=== PATIENT | female | born 1995 | race African-American/Black ===

== ENCOUNTER 2021-02-01 10:14 | Inpatient (IN) | payer OTHER ==
[~2021-02-01] VITALS: Ht 160 cm; Wt 63.0 kg
[2021-02-01 10:16] VITALS: BP 153/61
[2021-02-01 10:50] LABS: HEMATOCRIT 35.6 % (37.0-47.0); HEMOGLOBIN 11.5 gm/dL (12.0-15.0); MCHC 32.4 g/dL (28.0-37.0); MCV 76.9 fL (80.0-100.0); PLATELET COUNT 222 thou/uL (150-400); RBC 4.62 mil/uL (4.20-5.00); RDW 17.6 % (10.5-14.5); WBC 25.5 thou/uL (4.0-11.0)
[2021-02-01 10:56] LABS: CALCIUM 8.6 mg/dL (8.5-10.1); CREATININE 0.8 mg/dL (0.6-1.0); POTASSIUM 3.2 mmol/L (3.5-5.1)
[2021-02-01 11:02] LABS: TOTAL BILIRUBIN 0.4 mg/dL (0.2-1.0); TOTAL PROTEIN 7.8 g/dL (6.4-8.2)
[2021-02-01 11:27] LABS: ABSOLUTE NEUTROPHILS 20.4 thou/uL (1.4-8.2)
[2021-02-01 11:28] LABS: ANISOCYTOSIS 1+
[2021-02-01 15:18] LABS: URINE BILIRUBIN NEGATIVE (Negative); URINE BLOOD 2+ (Negative); URINE COLOR YELLOW; URINE GLUCOSE-RANDOM* NEGATIVE (Negative); URINE KETONES 2+ (Negative); URINE LEUKOCYTES-REFLEX NEGATIVE (Negative); URINE PROTEIN (DIPSTICK) TRACE (Negative); URINE SPECIFIC GRAVITY <= 1.005 (1.005-1.035); URINE UROBILINOGEN 0.2 E.U./dl (0.2-1.0)
[2021-02-01 15:20] LABS: URINE CLARITY HAZY; URINE NITRITE-REFLEX POSITIVE (Negative)
[2021-02-01 15:31] LABS: CASTS None Seen /LPF (None Seen); SQUAMOUS >10 Many /LPF (0-3)
[2021-02-01 15:32] LABS: URINE RBC 3-10 Few /HPF (NONE SEEN)
[2021-02-01 15:33] LABS: BACTERIA-REFLEX 1-9 Few /HPF (None Seen); CRYSTALS None Seen /LPF (None Seen); URINE WBC-REFLEX 6-15 Few /HPF (0-5)
--- NOTE | 2021-02-01 19:07 | NUR ---
SPOKE WITH DR SANTANA AT THIS TIME. PT STATUS CHANGED FROM CC TELE TO MED SURG TELE.
[2021-02-02 08:29] VITALS: BP 102/53
--- NOTE | 2021-02-02 08:32 | NUR ---
PT UP TO SINK TO DO HYGINE. GIVEN MOUTH CARE AND BODY WASH AND DEODERANT AND CLEAN GOWN AT THIS TIME
--- NOTE | 2021-02-02 08:51 | NUR ---
PT SITTING UP EATING BREAKFAST AT THIS TIME
--- NOTE | 2021-02-02 10:13 | NUR ---
assumed care of pt at this time
[2021-02-02 10:37] VITALS: BP 106/42
[2021-02-02 10:37] LABS: HEMATOCRIT 32.9 % (37.0-47.0); HEMOGLOBIN 10.6 gm/dL (12.0-15.0); MCH 24.8 pg (26.0-34.0); MCHC 32.3 g/dL (28.0-37.0); MCV 76.7 fL (80.0-100.0); RBC 4.29 mil/uL (4.20-5.00); RDW 17.5 % (10.5-14.5); WBC 20.3 thou/uL (4.0-11.0)
[2021-02-02 10:41] LABS: CALCIUM 8.5 mg/dL (8.5-10.1); CREATININE 0.7 mg/dL (0.6-1.0); POTASSIUM 3.2 mmol/L (3.5-5.1)
--- NOTE | 2021-02-02 15:40 | NUR ---
25 year old female presents to the ED on 02-01-21 via private vehicle for 6 days of abdominal pain. Upon ED evaluation the patient was initially thought to have had acute appendicitis, but found acute right pyelonephritis on imaging. The patient has been admitted with and being treated for Sepsis related to acute right pyelonephritis. Per ED ID NOW as negative and Triage assessment notes no history of vaccination. Per the medical record and assessment the patient is listed as A&O x4, but does list a brother; Wong Harrison as next of kin at [phone]. Will have [employer] review with patient who is listed as patient pay. As Medical assessment continues CM will await therapy orders to be placed to assist for discharge planning which may include need for a safety net clinic.
[2021-02-02 17:22] VITALS: BP 106/42
[2021-02-02 18:27] VITALS: BP 106/59
--- NOTE | 2021-02-02 20:06 | NUR ---
Pt. resting quietly in the bed and offers no c/o pain. Admission assessment and history is completed. She is up ad bright.
[2021-02-02 20:08] VITALS: BP 112/65
--- NOTE | 2021-02-03 03:52 | NUR ---
Pt. rested quietly during the night when checked on during frequent rounds. She offers no c/o pain.
[2021-02-03 04:18] LABS: ABSOLUTE NEUTROPHILS 9.4 thou/uL (1.4-8.2); BASOPHILS 0.4 % (0.0-2.0); EOSINOPHILS 2.8 % (0.0-3.0); HEMATOCRIT 32.7 % (37.0-47.0); HEMOGLOBIN 10.4 gm/dL (12.0-15.0); LYMPHOCYTES 18.9 % (24.0-44.0); MCH 25.2 pg (26.0-34.0); MCHC 31.7 g/dL (28.0-37.0); MCV 79.6 fL (80.0-100.0); MONOCYTES 12.9 % (1.0-8.0); PLATELET COUNT 229 thou/uL (150-400); RBC 4.11 mil/uL (4.20-5.00); RDW 18.2 % (10.5-14.5); WBC 14.5 thou/uL (4.0-11.0)
[2021-02-03 05:00] VITALS: BP 121/56
[2021-02-03 05:07] LABS: CALCIUM 8.2 mg/dL (8.5-10.1); CREATININE 0.6 mg/dL (0.6-1.0); MAGNESIUM 1.7 mg/dL (1.8-2.4); POTASSIUM 3.5 mmol/L (3.5-5.1)
[2021-02-03 08:10] VITALS: BP 106/50
--- NOTE | 2021-02-03 09:28 | NUR ---
25 year old female presents to the ED on 02-01-21 via private vehicle for 6 days of abdominal pain. Upon ED evaluation the patient was initially thought to have had acute appendicitis, but found acute right pyelonephritis on imaging. The patient has been admitted with and being treated for Sepsis related to acute right pyelonephritis. Per ED ID NOW as negative and Triage assessment notes no history of vaccination. Per the medical record and assessment the patient is listed as A&O x4, but does list a brother; Wong Harrison as next of kin at [phone]. Will have [employer] review with patient who is listed as patient pay. As Medical assessment continues CM will await therapy orders to be placed to assist for discharge planning which may include need for a safety net clinic.
[2021-02-03 11:00] VITALS: BP 125/65
--- NOTE | 2021-02-03 12:58 | NUR ---
ASSUMED PT CARE THIS AM. PT A&OX4, ABLE TO MAKE NEEDS KNOWN. PATIENT REPORTS RIGHT FLANK PAIN THAT DECREASES WITH PAIN MEDICAITON GIVEN PER EMAR. IV REMAINS PATENT, FLUIDS INFUSING. PATIENT ON ROOM AIR. MEDICATIONS TAKEN WITHOUT ISSUE. PATIENT IS UP AD MARK IN ROOM. CALL LIGHT WITHIN REACH.
[2021-02-03 15:40] VITALS: BP 114/61
[2021-02-03 19:52] VITALS: BP 105/54
--- NOTE | 2021-02-04 04:05 | NUR ---
Pt. rested quietly during the night when checked on during frequent rounds. She was given po pain meds and anti-nausea meds (see emar) with relief noted.
[2021-02-04 04:07] VITALS: BP 121/64
[2021-02-04 07:50] VITALS: BP 103/32
[2021-02-04 11:48] VITALS: BP 132/57
--- NOTE | 2021-02-04 14:22 | NUR ---
ASSUMED PT CARE THIS AM. PT A&OX4, ABLE TO MAKE NEEDS KNOWN. PATIENT REMAINS CONTINENT, AMBULATORY INDEPENDENTLY AROUND ROOM. IV REMAINS PATENT, SALINE LOCKED. MEDICATIONS TAKEN WITHOUT ISSUE. PATIENT REPORTS RIGHT FLANK PAIN THAT DECREASES WITH PAIN MEDICATION GIVEN PER EMAR. PATIENT REMAINS ON ROOM AIR. CALL LIGHT WITHIN REACH.
[2021-02-04 16:18] VITALS: BP 118/55
--- NOTE | 2021-02-04 16:42 | NUR ---
CARE TEAM INDICATED THAT IS PROGRESSING TOWARD GOAL OF DISCHARGE. [employer] VISITED WITH PT AND SUBMITTED AN APPLICATION ON HER 02/03/21 AND ARE WORKING WITH HER TO GET NEEDED DOCUMENTS. CM FOLLOWING REGARDING DC PLANNING.
[2021-02-04 19:24] VITALS: BP 115/53
--- NOTE | 2021-02-05 04:59 | NUR ---
Pt. rested quietly during the night when checked on during frequent rounds. She was given po pain med (see emar) for c/o flank pain with some relief noted.
[2021-02-05 05:42] LABS: HEMOGLOBIN 10.9 gm/dL (12.0-15.0); MCH 25.4 pg (26.0-34.0); MCV 76.7 fL (80.0-100.0); RBC 4.3 mil/uL (4.20-5.00); RDW 17.4 % (10.5-14.5); WBC 7.1 thou/uL (4.0-11.0)
[2021-02-05 05:59] LABS: CALCIUM 8.5 mg/dL (8.5-10.1); CREATININE 0.6 mg/dL (0.6-1.0); MAGNESIUM 1.7 mg/dL (1.8-2.4); POTASSIUM 3.2 mmol/L (3.5-5.1)
[2021-02-05 07:18] VITALS: BP 130/76
[2021-02-05 11:00] VITALS: BP 112/64
[2021-02-05 12:24] VITALS: BP 112/64
[2021-02-05] MEDS ORDERED: PEPCID20 MG PO (13:37)
[2021-02-05] MEDS ORDERED: MAGOX 400400 MG PO (13:37)
[2021-02-05] MEDS ORDERED: TYLENOL EXTRA500 MG PO (13:37)
--- NOTE | 2021-02-05 14:58 | NUR ---
CARE TEAM INDICATED THAT PT IS MEDICALLY STABLE TO DC HOME THIS DAY. PT IS TO DC HOME TO SELF CARE. NO OTHER CM INTERVENTION INDICATED. CASE CLOSED.
--- NOTE | 2021-02-05 15:54 | NUR ---
pt discharge papers signed and in chart. all questions from patient answered and pt understood. IV and Tele removed without difficulty. catheter intact. pt left 4W via wheelchair with tech. no additional needs needed at this time. pt left floor at 1556 on 02/05/2021.
== END 2021-02-05 16:08 | disposition home or self-care (01) | DRG 872 ==
LOC: ER 10:14 → EROBS 17:03 → 4W 02-02 18:21
PROVIDERS: Emergency Medicine; ADMIT Internal Medicine; ATTEND Internal Medicine
DX: A41.51 Sepsis due to Escherichia coli [E. coli] (principal); N10 Acute pyelonephritis; E87.1 Hypo-osmolality and hyponatremia; M54.50 Low back pain, unspecified; F17.210 Nicotine dependence, cigarettes, uncomplicated; Z20.822 Contact with and (suspected) exposure to COVID-19; Z28.21 Immunization not carried out because of patient refusal; Z88.0 Allergy status to penicillin; Z71.6 Tobacco abuse counseling
CPT/HCPCS: 10045